=== PATIENT | female | born 1985 ===

== ENCOUNTER 2023-12-06 14:32 | Outpatient (CLI) | payer OTHER | END 2023-12-06 14:33 | disposition home or self-care (01) | LOC: PRENATAL 14:32 | PROVIDERS: ATTEND Obstetrics & Gynecology Maternal & Fetal Medicine | DX: O35.9XX0 Maternal care for (suspected) fetal abnormality and damage, unspecified, not applicable or unspecified (principal); O35.3XX0 Maternal care for (suspected) damage to fetus from viral disease in mother, not applicable or unspecified; O44.00 Complete placenta previa NOS or without hemorrhage, unspecified trimester; Z3A.20 20 weeks gestation of pregnancy ==

== ENCOUNTER 2024-02-06 20:06 | Inpatient (IN) | payer OTHER ==
[~2024-02-06] VITALS: Ht 170.2 cm; Wt 1.4 kg
[2024-02-06] MEDS ORDERED: BETAMETHASONE ACETATE,SOD PHOS 30 MG/5 ML ML ONE (20:54)
[2024-02-06] MEDS ORDERED: BUDESONIDE0.25 MG/1 IH (21:23)
[2024-02-06] MEDS ORDERED: BUDESONIDE1 MG/2 ML IH (21:25)
[2024-02-06] MEDS ORDERED: ZYRTEC10 M3 PO (21:25)
[2024-02-06] MEDS ORDERED: PRENATAL CAPLE1 EAC1 PO (21:26)
[2024-02-06 21:29] LABS: HEMATOCRIT 31.9 % (36.0-45.00); HEMOGLOBIN 11.4 g/dL (12.0-15.00); MEAN CELL VOLUME 87.2 fL (80.00-100.00); MEAN CORPUSCULAR HEMOGLOBIN 31.2 pg (27.00-32.0); MEAN CORPUSCULAR HGB CONC 35.8 g/dl (32.0-36.0); RED BLOOD COUNT 3.66 M/uL (4.00-6.00); RED CELL DISTRIBUTION WIDTH 14.3 % (11.5-14.5)
[2024-02-06 21:30] LABS: URINE APPEARANCE Cloudy; URINE BILIRRUBIN Negative (NEGATIVE); URINE BLOOD Negative; URINE COLOR Yellow; URINE GLUCOSE Negative (NEGATIVE); URINE LEUKOCYTE Negative; URINE NITRATE Negative; URINE PROTEIN >=1000 (NEGATIVE)
[2024-02-06] MEDS ORDERED: BETAMETHASONE ACETATE,SOD PHOS 30 MG/5 ML ML IM SCH (21:30)
[2024-02-06 21:31] LABS: URINE RBC 14.2 uL (0.0-20.8); URINE WBC 123.3 uL (0.0-23.2)
[2024-02-06 21:48] LABS: INR < 0.93; PARTIAL THROMBOPLASTIN TIME 21.2 SECONDS (22.0-34.0); PROTHROMBIN TIME 9.7 SECONDS (9.0-11.5)
[2024-02-06 21:49] LABS: URINE BACTERIA > 9821.5 uL (0.0-1933); URINE EPITHELIAL CELLS > 201.7 uL (0.0-38.8)
[2024-02-06 21:53] LABS: ALBUMIN 2.5 gm/dL (3.4-5.0); BILIRUBIN TOTAL 0.22 mg/dL (0.3-1.2); CALCIUM 9.1 mg/dL (8.5-10.1); CREATININE SERUM 0.69 mg/dL (0.55-1.02); GFR 95.73; GLOBULINA 3.4 G/DL (2.4-3.5); POTASSIUM 3.92 mEq/L (3.5-5.1); TOTAL PROTEIN 5.9 gm/dL (6.4-8.2)
[2024-02-06 22:03] LABS: PLATELET COUNT 154 K/uL (150-450)
[2024-02-09] MEDS ORDERED: LABETALOL HCL 200 MG TABLET PO SCH (18:57)
[2024-02-10 10:31] LABS: HEMATOCRIT 33.1 % (36.0-45.00); MEAN CELL VOLUME 87.2 fL (80.00-100.00); MEAN CORPUSCULAR HGB CONC 34.8 g/dl (32.0-36.0); PLATELET COUNT 146 K/uL (150-450); RED CELL DISTRIBUTION WIDTH 14.3 % (11.5-14.5)
[2024-02-10 10:38] LABS: HEMOGLOBIN 11.5 g/dL (12.0-15.00); MEAN CORPUSCULAR HEMOGLOBIN 30.2 pg (27.00-32.0)
[2024-02-10] MEDS ORDERED: ERYTHROMYCIN BASE 3.5 GM OINT...G. OP ONE (10:46)
[2024-02-10] MEDS ORDERED: OXYTOCIN 10 UNITS/ML VIAL ONE (10:46)
[2024-02-10 10:48] LABS: INR < 0.93; PARTIAL THROMBOPLASTIN TIME 25.6 SECONDS (22.0-34.0); PROTHROMBIN TIME 9.5 SECONDS (9.0-11.5)
[2024-02-10 10:53] LABS: ALBUMIN 2.2 gm/dL (3.4-5.0); BILIRUBIN TOTAL 0.24 mg/dL (0.3-1.2); CALCIUM 8.3 mg/dL (8.5-10.1); CREATININE SERUM 0.84 mg/dL (0.55-1.02); GFR 76.29; GLOBULINA 3.1 G/DL (2.4-3.5); POTASSIUM 3.7 mEq/L (3.5-5.1); TOTAL PROTEIN 5.3 gm/dL (6.4-8.2)
[2024-02-10] MEDS ORDERED: ENALAPRILAT DIHYDRATE 1.25 MG/ML VIAL IV ONE (12:05)
[2024-02-10] MEDS ORDERED: CEFOXITIN SODIUM 2,000 MG VIAL IV ONE ×2 (12:06→12:30)
[2024-02-10] MEDS ORDERED: PROMETHAZINE HCL 50 MG/ML AMPUL IV SCH (12:25)
[2024-02-10] MEDS ORDERED: MEPERIDINE HCL/PF 50 MG/ML VIAL IV SCH (12:25)
[2024-02-10] MEDS ORDERED: SUGAMMADEX SODIUM 200 MG/2 ML VIAL IV ONE ×2 (12:29→13:00)
[2024-02-10] MEDS ORDERED: ENALAPRILAT DIHYDRATE 2.5 MG/2 ML VIAL IV ONE (12:30)
[2024-02-10] MEDS ORDERED: MAGNESIUM SULFATE IN WATER 500 ML IV SCH (12:30)
[2024-02-10] MEDS ORDERED: OXYTOCIN 10 UNITS/ML VIAL IV ONE (12:30)
[2024-02-10] MEDS ORDERED: ERYTHROMYCIN BASE 1 GM TUBE OP SCH (12:30)
[2024-02-10] MEDS ORDERED: OXYTOCIN 1,000 ML IV SCH (12:30)
[2024-02-10] MEDS ORDERED: RINGERS SOLUTION,LACTATED 1,000 ML IV SCH (12:30)
[2024-02-10] MEDS ORDERED: ERYTHROMYCIN BASE 1 GM TUBE OP ONE (12:30)
[2024-02-10] MEDS ORDERED: MAGNESIUM SULFATE IN WATER 4 GM/100 ML PIGGYBACK IV ONE (12:33)
[2024-02-10] MEDS ORDERED: SIMETHICONE 125 MG CAPSULE PO SCH (13:00)
[2024-02-10 13:40] LABS: ABG PH 7.223 (7.35-7.45)
[2024-02-10 13:41] LABS: ABG PO2 16.6 mmHg (80-100); ABG pCO2 65.5 mmHg (35-45); BASE EXCESS -2.8 mmol/l; BICARBONATE 26.4 mmol/l (23-25); SaO2 15.9 %; Tco2 28.4 mmol/l
[2024-02-10 13:42] LABS: o2 21 %
[2024-02-10] MEDS ORDERED: PROMETHAZINE HCL 50 MG/ML AMPUL ONE (14:07)
[2024-02-10] MEDS ORDERED: LABETALOL HCL 100 MG/20 ML ML ONE (18:06)
[2024-02-10] MEDS ORDERED: LABETALOL HCL 100 MG/20 ML ML IV PUSH PRN (18:45)
[2024-02-10 22:17] LABS: HEMATOCRIT 37.3 % (36.0-45.00); HEMOGLOBIN 13.1 g/dL (12.0-15.00); MEAN CELL VOLUME 87.8 fL (80.00-100.00); MEAN CORPUSCULAR HEMOGLOBIN 30.8 pg (27.00-32.0); MEAN CORPUSCULAR HGB CONC 35.1 g/dl (32.0-36.0); PLATELET COUNT 140 K/uL (150-450); RED BLOOD COUNT 4.25 M/uL (4.00-6.00); RED CELL DISTRIBUTION WIDTH 14.5 % (11.5-14.5)
[2024-02-10 22:30] LABS: INR < 0.93; PARTIAL THROMBOPLASTIN TIME 25.9 SECONDS (22.0-34.0); PROTHROMBIN TIME 9.2 SECONDS (9.0-11.5)
[2024-02-10 22:35] LABS: ALBUMIN 2.1 gm/dL (3.4-5.0); BILIRUBIN TOTAL 0.56 mg/dL (0.3-1.2); CALCIUM 8.5 mg/dL (8.5-10.1); CREATININE SERUM 0.8 mg/dL (0.55-1.02); GFR 80.71; GLOBULINA 3.2 G/DL (2.4-3.5); POTASSIUM 4.42 mEq/L (3.5-5.1); TOTAL PROTEIN 5.3 gm/dL (6.4-8.2)
[2024-02-11] MEDS ORDERED: NAPROXEN 500 MG TABLET PO SCH (10:06)
[2024-02-11] MEDS ORDERED: ACETAMINOPHEN WITH CODEINE 1 UDTAB TABLET PO PRN (10:15)
[2024-02-11 11:28] LABS: INR < 0.93; PARTIAL THROMBOPLASTIN TIME 29.1 SECONDS (22.0-34.0); PROTHROMBIN TIME 9.4 SECONDS (9.0-11.5)
[2024-02-11 11:57] LABS: ALBUMIN 1.9 gm/dL (3.4-5.0); BILIRUBIN TOTAL 0.85 mg/dL (0.3-1.2); CALCIUM 7.6 mg/dL (8.5-10.1); CREATININE SERUM 0.82 mg/dL (0.55-1.02); GFR 78.44; TOTAL PROTEIN 4.9 gm/dL (6.4-8.2)
[2024-02-11 12:13] LABS: HEMATOCRIT 34.9 % (36.0-45.00); HEMOGLOBIN 11.9 g/dL (12.0-15.00); MEAN CELL VOLUME 87.7 fL (80.00-100.00); MEAN CORPUSCULAR HGB CONC 34.2 g/dl (32.0-36.0); PLATELET COUNT 72 K/uL (150-450); RED BLOOD COUNT 3.97 M/uL (4.00-6.00); RED CELL DISTRIBUTION WIDTH 14.3 % (11.5-14.5)
[2024-02-11 12:36] LABS: POTASSIUM 4.43 mEq/L (3.5-5.1)
[2024-02-11 16:47] LABS: HEMATOCRIT 33.5 % (36.0-45.00); HEMOGLOBIN 11.5 g/dL (12.0-15.00); MEAN CELL VOLUME 87.8 fL (80.00-100.00); MEAN CORPUSCULAR HEMOGLOBIN 30.1 pg (27.00-32.0); MEAN CORPUSCULAR HGB CONC 34.3 g/dl (32.0-36.0); RED BLOOD COUNT 3.81 M/uL (4.00-6.00); RED CELL DISTRIBUTION WIDTH 14.5 % (11.5-14.5)
[2024-02-11 16:51] LABS: PLATELET COUNT 74 K/uL (150-450)
[2024-02-11 17:24] LABS: INR < 0.93; PARTIAL THROMBOPLASTIN TIME 27.6 SECONDS (22.0-34.0); PROTHROMBIN TIME 9.3 SECONDS (9.0-11.5)
[2024-02-11 17:30] LABS: BILIRUBIN TOTAL 0.61 mg/dL (0.3-1.2); CALCIUM 7.6 mg/dL (8.5-10.1); CREATININE SERUM 1.32 mg/dL (0.55-1.02); GFR 45.28; GLOBULINA 2.9 G/DL (2.4-3.5); POTASSIUM 4.75 mEq/L (3.5-5.1); TOTAL PROTEIN 4.9 gm/dL (6.4-8.2)
[2024-02-13] MEDS ORDERED: NAPROXEN 500 MG TABLET PO PRN (08:51)
[2024-02-13] MEDS ORDERED: LABETALOL HCL 100 MG TABLET PO STA (09:16)
[2024-02-13 09:27] LABS: HEMATOCRIT 28.2 % (36.0-45.00); HEMOGLOBIN 9.8 g/dL (12.0-15.00); MEAN CELL VOLUME 89.3 fL (80.00-100.00); MEAN CORPUSCULAR HEMOGLOBIN 31.1 pg (27.00-32.0); MEAN CORPUSCULAR HGB CONC 34.9 g/dl (32.0-36.0); RED BLOOD COUNT 3.16 M/uL (4.00-6.00); RED CELL DISTRIBUTION WIDTH 14.5 % (11.5-14.5)
[2024-02-13 09:49] LABS: PLATELET COUNT 95 K/uL (150-450)
[2024-02-13 10:00] LABS: BILIRUBIN TOTAL 0.35 mg/dL (0.3-1.2); CALCIUM 8.5 mg/dL (8.5-10.1); CREATININE SERUM 0.77 mg/dL (0.55-1.02); GFR 84.35; GLOBULINA 3.1 G/DL (2.4-3.5); POTASSIUM 3.85 mEq/L (3.5-5.1); TOTAL PROTEIN 5.1 gm/dL (6.4-8.2)
[2024-02-13] MEDS ORDERED: NIFEDIPINE 30 MG TAB.SA.OSM PO STA (11:58)
[2024-02-13] MEDS ORDERED: LABETALOL HCL 300 MG TABLET PO SCH (17:00)
[2024-02-14] MEDS ORDERED: NIFEDIPINE 30 MG TAB.SA.OSM PO SCH (09:00)
[2024-02-14] MEDS ORDERED: SOD FERRIC GLUC COMPLX/SUCROSE 62.5 MG in 0.9 % SODIUM CHLORIDE 50 ML IV SCH (10:23)
[2024-02-15] MEDS ORDERED: COLACE100 MG PO (12:29)
[2024-02-15] MEDS ORDERED: FERROUS SULFAT325 M2 PO (12:29)
[2024-02-15] MEDS ORDERED: Procardia Xl 30MG TA PO (12:29)
[2024-02-15] MEDS ORDERED: NAPR500T14 PO (12:29)
[2024-02-15] MEDS ORDERED: TRANDATE300 MG PO (12:29)
[2024-02-15] MEDS ORDERED: ACETAMINOPHEN-1 EAC2 PO (12:30)
== END 2024-02-15 18:58 | disposition home or self-care (01) | DRG 788 ==
LOC: LDR 20:06 → OB/GYN 20:06
PROVIDERS: Obstetrics & Gynecology; ADMIT Student in an Organized Health Care Education/Training Program; ATTEND Student in an Organized Health Care Education/Training Program
PROC: 4A1HXCZ Monitoring of Products of Conception, Cardiac Rate, External Approach (ICD-10-PCS; 2024-02-06)
PROC: BY4FZZZ Ultrasonography of Third Trimester, Single Fetus (ICD-10-PCS; 2024-02-07)
PROC: 10D00Z1 Extraction of Products of Conception, Low, Open Approach (ICD-10-PCS; principal; 2024-02-10 10:00)
PROC: B020ZZZ Computerized Tomography (CT Scan) of Brain (ICD-10-PCS; 2024-02-13)
DX: O14.14 Severe pre-eclampsia complicating childbirth (principal); O36.8130 Decreased fetal movements, third trimester, not applicable or unspecified; O60.14X0 Preterm labor third trimester with preterm delivery third trimester, not applicable or unspecified; O26.843 Uterine size-date discrepancy, third trimester; Z3A.29 29 weeks gestation of pregnancy; Z37.0 Single live birth; Z20.822 Contact with and (suspected) exposure to COVID-19